=== PATIENT | female | born 1950 | race Caucasian/White ===

== ENCOUNTER 2016-04-01 20:06 | Emergency (ER) | payer OTHER ==
[2016-04-01] MEDS ORDERED: HYDROcodone-APAP 5 MG -325 MG TABLET PO ONE (20:28)
--- NOTE | 2016-04-01 20:34 | PDOC ---
Hand / Wrist Injury HPI - General Chief Complaint: Upper Extremity Problem/Injury Stated Complaint: Right wrist pain x 1 day Date Seen by Provider: 04/01/16 Time Seen by Provider: 20:30 Source: POSITIVE: Patient Exam Limitations: POSITIVE: No limitations Nurse's Notes Reviewed & Considered: Yes - History of Present Illness Initial Comments: Patient fell yesterday onto her outstretched right hand while bowling. She states she was unable to sleep last night her pain continues and there is significant bruising of her right wrist and right elbow. She has decreased range of motion in her wrist secondary to pain. No decreased range of motion in her elbow. Capillary refill and sensations distally good movement of the poor strength in her partner cco. Have you received a tetanus shot in the past 10 years?: Unknown Body Location Affected: REPORTS: Upper Extremity (R) Timing: REPORTS: Abrupt Duration: >24 hours Severity: Moderate Location at Time of Onset: REPORTS: Other ([place]ling alley) Context: REPORTS: Fall Location of Injury: REPORTS: Right, Elbow, Wrist Quality: REPORTS: "Pain", Stabbing, Throbbing, Tenderness Modifying Factors: REPORTS: Movement, Rest Any Prior Injuries Related to Current Complaint?: No - Patient Home Medications Home Medications: Home Medications Alprazolam 0.5 mg PO Q6H PRN 07/28/11 Aspirin 2 tab PO DAILY 07/28/11 Dexlansoprazole [Dexilant] 60 mg PO DAILY 07/28/11 Ezetimibe [Zetia] 10 mg PO DAILY 07/28/11 Irbesartan [AVAPRO] 300 mg PO DAILY 07/28/11 Levothyroxine Sodium [Synthroid] 125 mcg PO DAILY 07/28/11 Methotrexate Sodium [Methotrexate] 10 mg PO WEEKLY 07/28/11 Nebivolol HCl [Bystolic] 5 mg PO HS 07/28/11 [place]-3 Acid Ethyl Esters [Lovaza] 2 gm PO BID 07/28/11 Rosuvastatin Calcium [Crestor] 5 mg PO DAILY 07/28/11 Zolpidem Tartrate [Ambien] 10 mg PO HS 07/28/11 Clonidine HCl 0.2 mg ORAL TID tab 01/17/12 Clindamycin HCl 300 mg PO TID #30 capsule 02/08/16 Denosumab [Prolia] 60 mg SQ .2 X YEAR 02/08/16 Dextroamphetamine/Amphetamine [Adderall 10 mg Tablet] 10 mg PO DAILY 02/08/16 Diazepam 5 mg PO BID 02/08/16 Escitalopram Oxalate [Lexapro] 20 mg PO DAILY 02/08/16 Estradiol [Vagifem] 10 mcg VG .2X WEEK 02/08/16 Hydrocodone Bit/Acetaminophen [Hydrocodon-Acetaminoph 7.5-325] 2 tab PO Q4H PRN 02/08/16 Niacin 1,000 mg PO DAILY 02/08/16 Nortriptyline HCl 25 mg PO DAILY 02/08/16 [place]-3 Acid Ethyl Esters [Lovaza] 1 gm PO DAILY 02/08/16 Potassium Bicarbonate/Cit AC [Potassium 25 Meq Tab Eff] 25 meq PO DAILY Temazepam [Restoril] 15 mg PO DAILY 02/08/16 Topiramate [Topiramate ER] 25 mg PO DAILY 02/08/16 - Patient Allergies Allergies/Adverse Reactions: Allergies Allergy/AdvReac Type Severity Reaction Status Date / Time codeine Allergy Intermediate RASH, Verified 04/01/16 20:26 ITCHING Past Medical History - heen HEENT History: Dentures/Partials Cardiovascular History: Hypertension, CAD, Hyperlipidemia Respiratory History: Denies History Gastrointestinal History: GERD Genitourinary History: Denies History Endocrine History: Hypothyroidism, Other (please comment) Additional Endocrine History: PRE DIABETIC Musculoskeletal History: Arthritis, Back Pain Prosthesis or Implant: Yes (RT ANKLE SCREW) Neurological History: Denies History Blood Disorders: Denies History Psychiatric History: Depression, Anixety Disorders, ADHD History of Sexually Transmitted Diseases: No Cancer History: Denies History History of MDRO: Unknown History of Other Communicable Diseases: No Alcohol Use: Occasionally Substance Use Type: None Previous Surgical History: Yes Type / Date of Surgery: HYST, BREAST BIOPSY X 2, RT ANKLE, NASAL Anesthesia Reactions: No Malignant Hyperthermia: No Significant Family History: No pertinent family hx ROS - Limitations ROS Limitations: No Limitations Constitution: REPORTS: Denies Symptoms Cardiovascular: REPORTS: Denies Cardiac Symptoms Respiratory: REPORTS: Denies Resp Symptoms Neurological: REPORTS: Denies Neuro Symptoms Gastrointestinal: REPORTS: Denies GI Symptoms Endocrine: REPORTS: Denies Symptoms Musculoskeletal: REPORTS: Joint Pain Genitourinary: REPORTS: Denies Symptoms Eyes: REPORTS: Denies Symptoms ENT: REPORTS: Denies Symptoms Skin: REPORTS: Denies Skin Symptoms Lympathic: REPORTS: Denies Lympathic Symptoms Immunologic: POSITIVE: Denies Symptoms Psychiatric: POSITIVE: Denies Psych Symptoms Hand / Wrist Injury Exam - General Appearance General Appearance: POSITIVE: Alert, Cooperative, No Acute Distress - Extremities Upper Extremity: POSITIVE: Soft Tissue Tenderness, Bony Tenderness, Swelling, Ecchymosis, Deformity, Limited ROM d/t Pain Neurovascular / Tendon: POSITIVE: Sensation Normal, Motor Normal, No Vascular Compromise, Tendon Function Normal Skin: POSITIVE: Warm, Dry - HEENT HEENT: POSITIVE: Head Inspection Nml, Eyes Inspection Nml, Ears Inspection Nml, Nose Inspection Nml, PERRL, EOMI Hand / Wrist Injury Progress - Results Reviewed by me Xrays/CTs/US Reviewed by me: Yes Discussed with Radiologist: No - Patient's Progress Pain Medication Addressed: POSITIVE: Yes Status: POSITIVE: Improved MDM / ED Course: Emergency Department and examined. X-rays were obtained of her right wrist and elbow. She received 2 tablets of [place]. X-rays per my interpretation showed distal radial fracture. X-ray of her elbow shows no acute osseous abnormalities per my interpretation. Assessment: Radial fracture. Plan: Splint, sling, pain medicine. Follow-up with orthopedics tomorrow. - Consult Counseled: POSITIVE: Patient, RE: Radiology Results, RE: DX Patient Care Time - Estimated PCT Patient Care Time (In Minutes): 20 Vital Signs - VS Reviewed Vital Signs Reviewed: Yes Discharge Clinical Impression: Fracture of radius Discharge Disposition: Discharged to Home Condition: Good Patient Instructions Given at Discharge: Wrist Fracture in Adults (ED)
[2016-04-01 23:10] VITALS: RESP 16; TEMP 97.3
--- NOTE | 2016-04-02 07:38 | DI ---
RIGHT WRIST, 04/01/2016 8:26 PM: Clinical History: Injury. The patient fell. Previous Exam: None at this facility. 3 views are submitted. There is suggestion of some soft tissue swelling on the volar aspect in the re gion of the wrist itself. There is no fracture or dislocation. Reading: No fracture noted.
--- NOTE | 2016-04-02 07:38 | DI ---
RIGHT ELBOW, 04/01/2016 8:26 PM: Clinical History: Injury. The patient fell. Previous Exam: None at this facility. 3 views are submitted. No joint effusion or soft tissue swelling is noted. The radius and ulna are in tact. On the AP projection, there is a lucency through the medial condyle of the distal humerus. Readin. There is a lucency involving the distal humerus in the region of the medial condyle and epicondyl e. 2. This lucency may represent a nondisplaced fracture and followup films in 7-10 days are recommende d to be certain no fracture is present.
== END 2016-04-01 21:56 | disposition home or self-care (01) ==
LOC: ER 20:06
DX: S52.501A Unspecified fracture of the lower end of right radius, initial encounter for closed fracture (principal); S50.01XA Contusion of right elbow, initial encounter; S60.211A Contusion of right wrist, initial encounter; W18.39XA Other fall on same level, initial encounter; Y93.54 Activity, bowling
CPT/HCPCS: 29125; 73080; 73110; 99282

== ENCOUNTER → 2016-04-05 | Outpatient (CLI) | payer OTHER ==
--- NOTE | 2016-04-06 08:54 | DI ---
RIGHT FOOT, 04/05/2016 1:36 PM: Clinical History: Hammertoe of the right foot. Previous Exam: None at this facility. 3 weightbearing views are submitted. There is no acute soft tissue, osseous, or joint abnormality. Th ere is a hammertoe deformity of the second toe. The patient is status post ORIF of fractures of the l ateral malleolus and the posterior malleolus. Reading: Hammertoe deformity of the second toe.
--- NOTE | 2016-04-06 08:56 | DI ---
LEFT FOOT, 04/05/2016 1:35 PM: Clinical History: Hammertoe deformity. Previous Exam: None at this facility. 3 weightbearing views are submitted. There is no acute soft tissue, osseous, or joint abnormality. Ar thritic changes are present in the first metatarsophalangeal joint. There is a hammertoe deformity of the second toe. There is a bunion of the fifth metatarsal bone with varus angulation of the fifth to e. Reading: Hammertoe deformity of the second toe. Arthritic changes are present in the first metatarsophalangeal joint.
== END ==
LOC: MOB RAD 13:37
PROVIDERS: ATTEND Podiatrist Foot & Ankle Surgery
DX: M79.672 Pain in left foot (principal); M79.671 Pain in right foot; M20.41 Other hammer toe(s) (acquired), right foot; M20.42 Other hammer toe(s) (acquired), left foot; D36.10 Benign neoplasm of peripheral nerves and autonomic nervous system, unspecified
CPT/HCPCS: 73630

== ENCOUNTER → 2016-04-26 | Outpatient (CLI) | payer OTHER | LOC: MMPC 10:00 | PROVIDERS: ATTEND Podiatrist Foot & Ankle Surgery | DX: M79.671 Pain in right foot (principal); G57.61 Lesion of plantar nerve, right lower limb; M20.41 Other hammer toe(s) (acquired), right foot | CPT/HCPCS: 99212; G0463 ==

== ENCOUNTER → 2016-05-10 | Outpatient (CLI) | payer OTHER | LOC: MMPC 10:00 | PROVIDERS: ATTEND Podiatrist Foot & Ankle Surgery | DX: M79.671 Pain in right foot (principal); D16.31 Benign neoplasm of short bones of right lower limb; G57.61 Lesion of plantar nerve, right lower limb; M20.41 Other hammer toe(s) (acquired), right foot; M77.51 Other enthesopathy of right foot and ankle | CPT/HCPCS: 99213; G0463 ==

== ENCOUNTER → 2016-06-07 | Outpatient (CLI) | payer OTHER | LOC: MMPC 10:00 | PROVIDERS: ATTEND Podiatrist Foot & Ankle Surgery | DX: M20.41 Other hammer toe(s) (acquired), right foot (principal); M79.671 Pain in right foot; D36.10 Benign neoplasm of peripheral nerves and autonomic nervous system, unspecified | CPT/HCPCS: 99212 ==

== ENCOUNTER 2016-06-14 08:26 | Day surgery (SDC) | payer OTHER ==
[~2016-06-14 08:26] MED LIST: LIDOCAINE W/ SODIUM BICARB 0.5 ML SYR ONE; Lactated Ringers 1,000 ML PRIMARY IV ONE; ceFAZolin Inj 2gm (Premix) 50 ML IV ONE
[2016-06-14] MEDS ORDERED: MIDAZOLAM 5 MG/1 ML ONE (08:52)
[2016-06-14] MEDS ORDERED: fentaNYL Inj 100 MCG/2 ML VIAL ONE ×2 (08:52→12:22)
[2016-06-14] MEDS ORDERED: ROPIVACAINE HCL 7.5 MG/1 ML - 20 ML ONE (09:49)
[2016-06-14] MEDS ORDERED: MEPIVACAINE HCL/PF 20 MG/1 ML IV ONE (09:49)
[2016-06-14] MEDS ORDERED: LIDOCAINE 2%/ EPI 1:200,000 - 20 ML VIAL ONE (09:49)
[2016-06-14] MEDS ORDERED: DEXAMETHASONE SOD PHOSPHATE 4 MG/1 ML VIAL ONE (09:50)
[2016-06-14] MEDS ORDERED: LIDOCAINE 2% 20 MG/ML - 20 ML VIAL ONE (12:20)
[2016-06-14] MEDS ORDERED: BUPivacaine Inj 0.5% PF (5mg/ml) 10ml vial ONE (12:20)
--- NOTE | 2016-06-14 12:20 | CRNA.PROCE ---
Nerve Block Documentation - - Safety Measures: Time Out Taken, Site Verified - - Type of Nerve Block Used: Right Popliteal Fossa Block (Primary anesthetic for podiatry procedure. Plan sedation in addition.) Position for Nerve Block: Prone Moniters Used During Block: SPO2, NIBP Oxygen Sumpplented: Yes Sedation Used - Enter Amount in Comment Field: Midazolam (mg): Yes (2 mg), Fentanyl (mcg): Yes (50) Skin Prep Used: ChloroPrep (Twice) Draped: No Technique: Nerve Stimulator Nerve Block Needle Used: 80 mm ProBlk II Stimulation Hz: 1 Stimulation Staring mA: 1.8 Stimulation Ending mA: 0.48 Local Anesthetic - Enter Amt in Comment Field: 2 % Xylocaine with Epinephrine 1: 200,000 (mL): Yes (10 ml in 3 ml increments), Other Anesthetic: Yes (0.75 % Ropivicaine 20 ml in 3 ml increments) Additives to Nerve Blocks: Dexamethasone (mL): Yes (4 mg)
[2016-06-14] MEDS ORDERED: Lactated Ringers 1,000 ML PRIMARY IV ONE (12:28)
[2016-06-14] MEDS ORDERED: METOPROLOL TARTRATE 5 MG/5 ML VIAL ONE (12:33)
[2016-06-14] MEDS ORDERED: BUPivacaine Liposome/PF (Exparel) Inj 20ml vial INFIL ONE ×2 (13:12→13:14)
[2016-06-14] MEDS ORDERED: NORMAL SALINE 10 ML SYRINGE FLUSH IVP PRN (13:45)
[2016-06-14 15:06] VITALS: RESP 16
--- NOTE | 2016-06-14 15:31 | DI ---
XR FOOT COMPLETE MIN 3VW,06/14/2016 1:45 PM: Clinical History: Postoperative views. Previous Exam: April 05, 2016 contralateral side. Findings: 3 views of the right foot are obtained, and demonstrate percutaneous K wires fixation of the second p halanx. There has been osteotomy of the distal right second proximal phalanx. There is a cortical bone screw involving the distal tibia. Impression: Percutaneous K wires fixation of the right second phalanx.
[2016-06-14 15:57] VITALS: TEMP 98
--- NOTE | 2016-06-14 15:59 | PT.PROG ---
Progress Note Progress Note: S: Pt. states she is doing well. Still has no feeling in her foot due to the pop block. O: Treatment consisted of gait training with walker: on even surfaced and up and down 4 steps with NWB on R LE. A: Pt. was able to correctly perform gait training with use of walker with no difficulty or safety concerns. She was instructed on use for home. P: Discharge patient at this time as no further therapy is indicated. Cathy Marroquin, [employer]
--- NOTE | 2016-06-14 16:27 | GEN.OPNOTE ---
Operative Report Surgeon: Dr. Patricio Menjivar Anesthesia Type: Regional, Local, MAC Anesthesia Provider: Kerri Mcgarry CRNA Surgery Date: 06/14/16 Preoperative Diagnosis: Rt foot. Hallux limitus first MPJ with bone spurring and pain. Second digit hammertoe. Third interspace neuroma. Postoperative Diagnosis: same Procedure: Rt foot Cheilectomy 1st mpj, 2nd digit hammertoe repair, and 3rd interspace neuroma excision. Estimated Blood Loss (mL): 5 Complications: none Description of Procedure: Under mild sedation and with a popliteal block the patient was wheeled to the operating room placed on operating table in supine position a well-padded pneumatic ankle tourniquet was placed about the Rt ankle. The foot was then prepped scrubbed and drapped in the usual aseptic manner. An instrument was then used to synchrony to right foot the ankle tourniquet was inflated to 250 mm of mercury. Attention was directed to the dorsal aspect of the first MPJ of the left foot where a linear longitudinal incision approximately 4-5 cm in length was made. The incision was then deepened using sharp and blunt dissection with care being taken to identify and retract all vital neural and vascular structures. The capsulotomy was then performed the capsular structures were reflected medially and laterally there was noted be a large dorsal bone spur on the first metatarsal head which was transected with an oscillating bone saw. Any rough edges were then smoothed with the oscillating drill and a rongeur. Bone wax was then applied to the exposed to the cut bone The joint was noted to a move smoothly after doing this. Redundant joint capsule and synovitis was transected with a 15 blade. Capsular structures were reapproximated and coapted with 2-0 and 3-0 Vicryl.. The skin was then reapproximated and coapted with 4.0 nylon in a running intradermal suture technique. Attention was directed the dorsal aspect of the second digit where a linear longitudinal incision approximately 4 cm in length was made on the dorsum of the toe. The incision was then deepened down to the level of the extensor tendon at the MP joint the extensor tendon was lengthened in Z-lengthening fashion and carried out. Attention was then directed to the PIP joint of the fourth digit where anwere capsulotomy was performed the head of the poximal phalanx of the second digit was then visualized and oscillating bone saw was then used to remove the head. The base of the middle phalanx was then transected with an oscillating bone saw a K wire was then inserted at the distal end of the toe through the middle and distal phalanx and retrograded back on the proximal phalanx this was checked with the C-arm. Good alignment of the toe and .45 K wire was confirmed with the C-arm. Once this was accomplished subcutaneous tissue was reapproximated and coapted with 4-0 Vicryl. The skin was then reapproximated and coapted with 4-0 nylon in running intradermal suture technique and reinforced simple interrupted and horizontal mattress suture technique. And attention was directed to the dorsal aspect of the third interspace where a linear longitudinal incision was made the incision was deepened using sharp and blunt dissection with care being taken to identify and retract all vital neurovascular structures. Incision was carried down to the level of the third interspace pass the fascial planes. Once this was done the mass was visualized and dissected free from surrounding soft tissue and the glistening soft tissue mass, right neuroma was visualized, the neuroma was approximately 3 cm long and about 6-7mm wide. The mass was removed and sent to pathology the wound was then flushed deep tissue planes were then reapproximated and coapted with 4-0 Vicryl the skin was then reapproximated and coapted with 4-0 nylon in a running interlocking suture technique. 10cc of exparel was then injected in and about the surgery sites sterile dressing was applied consisting of Xeroform gauze, 4 x 4 gauze, Kerlix, Coban, thew ankle tourniquet was deflated a prompt hyperemic response was noted to the toes. The patient tolerated the procedure well after postoperative monitoring the patient will be discharged home with both written and oral postoperative instructions.
== END 2016-06-14 15:40 | disposition home or self-care (01) ==
LOC: SDSC 08:26
PROVIDERS: ATTEND Podiatrist Foot & Ankle Surgery
DX: M79.671 Pain in right foot (principal); G57.61 Lesion of plantar nerve, right lower limb; M20.41 Other hammer toe(s) (acquired), right foot; M20.5X1 Other deformities of toe(s) (acquired), right foot
CPT/HCPCS: 28080; 28285; 28292; 73630; 76000; 97116; C9290; J0690; J3010; J0670; J1100; J2001; J2250; J3490; J7120

== ENCOUNTER → 2016-06-21 | Outpatient (CLI) | payer OTHER | LOC: MMPC 10:00 | PROVIDERS: ATTEND Podiatrist Foot & Ankle Surgery | DX: Z47.1 Aftercare following joint replacement surgery (principal) ==

== ENCOUNTER → 2016-06-28 | Outpatient (CLI) | payer OTHER | LOC: MMPC 10:00 | PROVIDERS: ATTEND Podiatrist Foot & Ankle Surgery | DX: G89.18 Other acute postprocedural pain (principal) ==

== ENCOUNTER → 2016-07-05 | Outpatient (CLI) | payer OTHER | LOC: MMPC 10:00 | PROVIDERS: ATTEND Podiatrist Foot & Ankle Surgery | DX: G89.18 Other acute postprocedural pain (principal) ==

== ENCOUNTER → 2016-07-12 | Outpatient (CLI) | payer OTHER | LOC: MMPC 10:00 | PROVIDERS: ATTEND Podiatrist Foot & Ankle Surgery | DX: Z48.02 Encounter for removal of sutures (principal) ==